=== PATIENT | female | born 1950 | race American Indian/Alaskan Native ===

== ENCOUNTER 2020-12-10 06:58 | Day surgery (SDC) | payer MEDICARE ==
[2020-12-10] MEDS ORDERED: ASPIRIN EC 325 MG TAB PO ONE (07:02)
[2020-12-10 07:41] LABS: Basophils % (Auto) 0.4 % (0.0-1.8); Eosinophils # (Auto) 0.2 K/mm3 (0.0-0.4); Hematocrit 40.9 % (30.3-42.9); Hemoglobin 13.9 gm/dl (10.1-14.3); Lymphocytes # (Auto) 1.9 K/mm3 (1.2-5.4); Lymphocytes % (Auto) 30.9 % (13.4-35.0); Mean Corpuscular HGB Conc 34 % (30-34); Mean Corpuscular Volume 96 fl (79-97); Monocytes # (Auto) 0.6 K/mm3 (0.0-0.8); Monocytes % (Auto) 9.4 % (0.0-7.3); Platelet Count 253 K/mm3 (140-440); Red Blood Count 4.26 M/mm3 (3.65-5.03); Red Cell Distribution Width 13.4 % (13.2-15.2)
[2020-12-10 07:54] LABS: BUN/Creatinine Ratio 12; Blood Urea Nitrogen 12 mg/dL (7-17); Calcium 9.5 mg/dL (8.4-10.2); Hemolysis Index 5
[2020-12-10 07:55] LABS: INR 0.91 (0.87-1.13)
[2020-12-10] MEDS ORDERED: fentaNYL 100 MCG/2 ML INJ ONE (08:05)
[2020-12-10] MEDS ORDERED: MIDAZOLAM 2 MG/2 ML INJ ONE (08:05)
[2020-12-10] MEDS ORDERED: NITROGLYCERIN SYRINGE 3 ML ONE (08:06)
[2020-12-10] MEDS ORDERED: HEPARIN 10,000 UNITS/10 ML VIAL ONE (08:06)
[2020-12-10] MEDS ORDERED: VERAPAMIL 5 MG/2 ML INJ ONE (08:06)
[2020-12-10] MEDS ORDERED: HEPARIN/NS 5000 UNIT/500ML 1,000 ML IR ONE (08:06)
[2020-12-10] MEDS: SODIUM CHLORIDE 0.9% 500 ML 500 ML IV SCH ×2 (08:30→09:05)
[2020-12-10] MEDS: LIDOCAINE (2%) 20 MG/1 ML VIAL 20 ML MDV INFILTRATI ONE ×2 (08:55→09:00)
--- NOTE | 2020-12-10 10:06 | Cardiac Catherization Report ---
DATE OF SERVICE: 12/10/2020 INDICATIONS: The patient is a 70-year-old female with history of recurrent substernal left sided sharp chest pains and symptoms are not related to any activities. Was noted to have abnormal myocardial perfusion imaging, which showed a small to medium-sized partially reversible apical defect suggestive of mild to moderate ischemia. Because of persistent chest pains,patient was scheduled for cardiac catheterization for definitive diagnosis and treatment. The patient is aware of the procedure, potential complications, and alternatives of therapy available. The patient is willing to proceed with cardiac catheterization. DESCRIPTION OF PROCEDURE: The patient was brought to the catheterization laboratory in a fasting condition. The right wrist area and forearm were thoroughly cleansed with Betadine solution. Sterile drapes were applied. Local anesthesia was achieved using 2% Xylocaine. The patient was evaluated for moderate sedation and was felt to be an appropriate candidate for moderate sedation. Received IV Versed and fentanyl. Subsequently, using a Glidewire could enter the ascending aorta with difficulty. Subclavian and innominate arteries were very tortuous. Right coronary angiograms were performed using a multipurpose catheter followed by 5-German TIG catheter for obtaining the left ventriculogram done in BRUNSON projection using hand injection and for obtaining the left coronary angiograms in multiple views. At the end of the procedure, catheter and sheath were removed and good hemostasis was achieved with application of radial band. The patient tolerated the procedure well. At the end of the procedure, the patient was comfortable, in no distress. The patient's sedation started at 8:52 a.m. and monitoring with EKG, pulse oximetry, and hemodynamic monitoring continued up to 9:12 a.m. No untoward complications were noted. The patient at the end of the procedure was breathing normally, communicating normally with no focal deficits and the patient was transferred to the room in stable condition. Following findings were noted: Aortic pressure was 172/79. Left ventricular pressure 172/13. No gradient across the aortic valve. Estimated ejection fraction 55%. LEFT ventriculogram done in BRUNSON projection showed normal sized left ventricle with normal contractility. End-diastolic and end-systolic volumes are normal. Mitral regurgitation could not be evaluated because of limited amount of dye injected. Right coronary artery dominant vessel arises normally from the anterior cusp. This vessel is angiographically smooth and normal. Left coronary artery arises normally from left coronary cusp. The left main is long, smooth and normal. LAD and its branches and circumflex artery and its branch are angiographically smooth and normal. FINAL IMPRESSION: 1. Normal-sized left ventricle with normal contractility with end-diastolic pressure upper limits of normal. 2. Angiographically normal coronary anatomy. 3. The patient tolerated the procedure well and tolerated the IV sedation well without any untoward side effects. Findings were explained to the patient and her daughter. PLAN: Continue present risk factor modification and medical therapy. TID: [id number] RECEIPT: [id number] ASHA/ANTONIO/ERIN MTDD
--- NOTE | 2020-12-10 10:53 | Short Stay Summary ---
Short Stay Documentation Date of service: 12/10/20 - History H&P: obtained from office - Allergies and Medications Current Medications: Allergies No Known Allergies Allergy (Verified 12/10/20 07:01) Home Medications Medication Instructions Recorded Confirmed Last Taken Type Aspirin [Adult Aspirin] 81 mg PO DAILY 12/10/20 12/10/20 12/09/20 History Desonide [Desonide 0.05%] 1 applicatio TP TID 12/10/20 12/10/20 12/09/20 History Elviteg/Cha/Emtric/Tenofo Ala 1 tab PO QAM 12/10/20 12/10/20 12/09/20 History [Genvoya (Nf)] Losartan [Cozaar] 50 mg PO QDAY 12/10/20 12/10/20 12/10/20 History Metoprolol Xl [Metoprolol 50 mg PO QDAY 12/10/20 12/10/20 12/10/20 History SUCCINATE ER TAB] Active Medications Sodium Chloride (Nacl 0.9% 500 Ml) 500 mls @ 50 mls/hr IV DIRECT NIALL Stop: 12/10/20 17:59 Last Admin: 12/10/20 09:05 Dose: 50 mls/hr Documented by: - Physical exam Integumentary: other (Right radial access site: Telfa Tegaderm in place, no bleeding or hematoma) - Brief post op/procedure progress note Date of procedure: 12/10/20 Pre-op diagnosis: Abnormal stress test Post-op diagnosis: other (Normal coronary arteries) Procedure: [facility] see dictated cath report Anesthesia: local Estimated blood loss: none Condition: stable - Disposition Condition at discharge: Good Disposition: DC-01 TO HOME OR SELFCARE Short Stay Discharge Plan Activity: advance as tolerated Diet: low fat, low cholesterol, low salt Wound: open to air, keep clean and dry, per your surgeon's advice Follow up with: ALBA HOOKS MD [Primary Care Provider] - 7 Days GUSTAVO MCKEON MD [Staff Physician] - 7 Days (Patient should follow-up with Dr. Kalpana Mckeon, [facility] in our [facility] office on 12/22/2020 at 10:15 AM. #[id number])
[2020-12-10 13:03] VITALS: BP 111/74
--- NOTE | 2020-12-11 17:54 | Electrocardiograph Report ---
[facility] Test Date: 2020-12-10 Test Time: 08:19:13 Pat Name: LOLI SUTTON Department: Room: Gender: F Painter Helper: ANNAMARIE : 1950 Requested By: FABIOLA WING Order Number: [id number] Reading MD: Michaela Paniagua Measurements Intervals [place] Rate: 71 P: 63 PA: 154 QRS: -28 QRSD: 94 T: 37 QT: 431 QTc: 470 Interpretive Statements Sinus rhythm Left axis deviation No previous ECG available for comparison Electronically Signed On 12-11-2020 17:53:33 EDT by Michaela Paniagua
== END 2020-12-10 13:00 | disposition home or self-care (01) ==
LOC: CATHLABREC 06:58
PROVIDERS: ATTEND Internal Medicine
DX: R07.89 Other chest pain (principal); E78.00 Pure hypercholesterolemia, unspecified; I10 Essential (primary) hypertension; Z79.899 Other long term (current) drug therapy; Z79.82 Long term (current) use of aspirin; Z98.49 Cataract extraction status, unspecified eye; Z98.890 Other specified postprocedural states
CPT/HCPCS: 80048; 85025; 85610; 93005; 93458; 99156; C1769; C1887; C1894; J1644; J2250; J3010; J7040; Q9967

== ENCOUNTER 2020-12-12 18:17 | Emergency (ER) | payer MEDICARE ==
[2020-12-12 18:24] VITALS: BP 179/96
[2020-12-12] MEDS ORDERED: HYDROcodone/ACETAMINOPHEN 5-325 MG TAB PO ONE (19:07)
--- NOTE | 2020-12-12 19:12 | Emergency Department Report ---
ED General Adult HPI - General Chief complaint: Extremity Injury, Upper Stated complaint: LT ARM PAINS Source: patient Mode of arrival: Ambulatory Limitations: No Limitations - History of Present Illness Initial comments: Patient 70-year-old -German female with history of hypertension, HIV positive, coronary artery disease, status post cardiac cath 2 days ago. Patient presents today for left arm pain that radiates from left neck to fingertips wtih tingling. Pain described as 5/10 sharp aching intermittent for past day. Pain is exacerbated by movement and deep inspiration. Pain is relieved by nothing. Patient denies shortness of breath, dizziness, headache, nausea or vomiting. There is been no diaphoresis. Patient denies activity intolerance. There is no weakness patient denies fall injury or trauma. There is no pain swelling bleeding or symptoms infection to cath site right wrist. - Related Data Home Medications Medication Instructions Recorded Confirmed Last Taken Aspirin [Adult Aspirin] 81 mg PO DAILY 12/10/20 12/10/20 12/09/20 Desonide [Desonide 0.05%] 1 applicatio TP TID 12/10/20 12/10/20 12/09/20 Elviteg/Cha/Emtric/Tenofo Ala 1 tab PO QAM 12/10/20 12/10/20 12/09/20 [Genvoya (Nf)] Losartan [Cozaar] 50 mg PO QDAY 12/10/20 12/10/20 12/10/20 Metoprolol Xl [Metoprolol 50 mg PO QDAY 12/10/20 12/10/20 12/10/20 SUCCINATE ER TAB] Previous Rx's Medication Instructions Recorded Last Taken Type Acetaminophen/Codeine [Tylenol 1 tab PO Q6H PRN #12 tab 12/12/20 Unknown Rx /Codeine # 3 tab] Allergies Allergy/AdvReac Type Severity Reaction Status Date / Time No Known Allergies Allergy Verified 12/12/20 18:19 ED Review of Systems ROS: Stated complaint: LT ARM PAINS Other details as noted in HPI Constitutional: denies: chills, fever Eyes: denies: eye pain, eye discharge, vision change ENT: denies: ear pain, throat pain Respiratory: denies: cough, shortness of breath, wheezing Cardiovascular: chest pain (left lateral chest wall pain ). denies: palpitations Endocrine: no symptoms reported Gastrointestinal: denies: abdominal pain, nausea, vomiting, diarrhea Genitourinary: denies: urgency, dysuria, discharge Musculoskeletal: myalgia, other (left arm pain and tingling ). denies: back pain, joint swelling, arthralgia Skin: denies: rash, lesions Neurological: denies: headache, weakness, paresthesias Psychiatric: denies: anxiety, depression Hematological/Lymphatic: denies: easy bleeding, easy bruising ED Past Medical Hx - Past Medical History Hx Hypertension: Yes Hx HIV: Yes Additional medical history: CARDIAC CATH- 12/10/20 - Social History Smoking Status: Never Smoker Substance Use Type: None - Medications Home Medications: Home Medications Medication Instructions Recorded Confirmed Last Taken Type Aspirin [Adult Aspirin] 81 mg PO DAILY 12/10/20 12/10/20 12/09/20 History Desonide [Desonide 0.05%] 1 applicatio TP TID 12/10/20 12/10/20 12/09/20 History Elviteg/Cha/Emtric/Tenofo Ala 1 tab PO QAM 12/10/20 12/10/20 12/09/20 History [Genvoya (Nf)] Losartan [Cozaar] 50 mg PO QDAY 12/10/20 12/10/20 12/10/20 History Metoprolol Xl [Metoprolol 50 mg PO QDAY 12/10/20 12/10/20 12/10/20 History SUCCINATE ER TAB] Acetaminophen/Codeine [Tylenol 1 tab PO Q6H PRN #12 tab 12/12/20 Unknown Rx /Codeine # 3 tab] ED Physical Exam - General Limitations: No Limitations General appearance: alert, in no apparent distress - Head Head exam: Present: atraumatic, normocephalic - Eye Eye exam: Present: normal appearance, EOMI Pupils: Present: normal accommodation - ENT ENT exam: Present: mucous membranes moist - Neck Neck exam: Present: normal inspection, full ROM. Absent: tenderness - Respiratory Respiratory exam: Present: normal lung sounds bilaterally, chest wall tenderness (left lateral chest wall pain). Absent: respiratory distress, wheezes, stridor - Cardiovascular Cardiovascular Exam: Present: regular rate, normal rhythm, normal heart sounds - GI/Abdominal GI/Abdominal exam: Present: soft, normal bowel sounds. Absent: distended, tenderness, guarding, rebound, rigid, bruit, hernia - Rectal Rectal exam: Present: deferred - Extremities Exam Extremities exam: Present: full ROM, tenderness (left axillary upper medial muscle tenderness to palpation, out of town collection clerk equal, acid adjuster < 3 sec, distal pulse +2 ), no rmal capillary refill - Expanded Upper Extremity Exam Left Shoulder Exam: Present: full ROM. Absent: tenderness, swelling Upper Arm exam: Present: full ROM, tenderness. Absent: swelling, crepidus, erythema Elbow exam: Present: full ROM. Absent: tenderness Forearm Wrist exam: Present: full ROM. Absent: tenderness, swelling Hand Wrist exam: Present: full ROM. Absent: tenderness Neuro motor exam: Present: wrist extension intact, thumb opposition intact, thumb IP flexion intact, thumb adduction intact, fingers 2-5 abduction intact Neurosensory exam: Present: radial nerve intact Vascular: Present: normal capillary refill, radial pulse - Back Exam Back exam: Present: normal inspection, full ROM. Absent: tenderness, muscle spasm, paraspinal tenderness, vertebral tenderness - Neurological Exam Neurological exam: Present: alert, oriented X3, CN II-XII intact, normal gait, reflexes normal. Absent: motor sensory deficit - Expanded Neurological Exam Expanded Patient oriented to: Present: person, place, time Speech: Present: fluid speech Cranial nerves: EOM's Intact: Normal, Gag Reflex: Normal, Tongue Deviation: Normal, Nystagmus: Normal, Facial Sensation: Normal Cerebellar function: Finger to Nose: Normal Upper motor neuron: Martin Neglect: Normal, Pronator Drift: Normal Sensory exam: Upper Extremity Light Touch: Normal, Upper Extremity Pin Prick: Normal, UE 2 Point Discrimination: Normal Motor strength exam: RUE: 5, LUE: 5, RLE: 5, LLE: 5 DTR: bicep (R): 2+, bicep (L): 2+, tricep (R): 2+, tricep (L): 2+ Best Eye Response ([place]): (4) open spontaneously Best Motor Response (Antonio): (6) obeys commands Best Verbal Response (Antonio): (5) oriented Antonio Total: 15 - Psychiatric Psychiatric exam: Present: normal affect, normal mood - Skin Skin exam: Present: warm, dry, intact, normal color. Absent: rash ED Course Vital Signs 12/12/20 12/12/20 18:22 19:50 Temperature 98.3 F Pulse Rate 70 Respiratory 20 16 Rate Blood Pressure 179/96 O2 Sat by Pulse 100 Oximetry ED Medical Decision Making - Lab Data Result diagrams: 12/12/20 19:11 12/12/20 19:11 Labs 12/12/20 12/12/20 12/12/20 19:11 19:11 19:11 WBC 7.3 RBC 4.16 Hgb 13.6 Hct 40.2 MCV 97 MCH 33 H MCHC 34 RDW 13.1 L Plt Count 246 Lymph % (Auto) 35.5 H [place] % (Auto) 9.3 H Eos % (Auto) 3.0 Baso % (Auto) 0.7 Lymph # (Auto) 2.6 [place] # (Auto) 0.7 Eos # (Auto) 0.2 Baso # (Auto) 0.0 Seg Neutrophils % 51.5 Seg Neutrophils # 3.8 PT 12.5 INR 0.88 APTT 26.9 Sodium 140 Potassium 4.6 Chloride 100.7 Carbon Dioxide 28 Anion Gap 16 BUN 13 Creatinine 0.9 Estimated GFR > 60 BUN/Creatinine Ratio 14 Glucose 101 H Calcium 9.7 Total Bilirubin 0.20 AST 18 ALT 10 Alkaline Phosphatase 132 H Troponin T < 0.010 Total Protein 7.0 Albumin 4.5 Albumin/Globulin Ratio 1.8 12/12/20 21:29 WBC RBC Hgb Hct MCV MCH MCHC RDW Plt Count Lymph % (Auto) [place] % (Auto) Eos % (Auto) Baso % (Auto) Lymph # (Auto) [place] # (Auto) Eos # (Auto) Baso # (Auto) Seg Neutrophils % Seg Neutrophils # PT INR APTT Sodium Potassium Chloride Carbon Dioxide Anion Gap BUN Creatinine Estimated GFR BUN/Creatinine Ratio Glucose Calcium Total Bilirubin AST ALT Alkaline Phosphatase Troponin T < 0.010 Total Protein Albumin Albumin/Globulin Ratio - EKG Data EKG shows normal: sinus rhythm, intervals Rate: normal - EKG Data When compared to previous EKG there are: no significant change Interpretation: nonspecific ST-T wave niecy (SR Left [place] deviation, No STEMI interp by ed attending) - Radiology Data Radiology results: report reviewed, image reviewed INDICATION / CLINICAL INFORMATION: chest wall pain. COMPARISON: None available. FINDINGS: SUPPORT DEVICES: None. HEART / MEDIASTINUM: No significant abnormality. LUNGS / PLEURA: No significant pulmonary or pleural abnormality. No pneumothorax. ADDITIONAL FINDINGS: No significant additional findings. IMPRESSION: 1. No acute findings. Signer Name: Werner Hand MD Signed: 12/12/2020 7:26 PM Workstation Name: [email or web address] Transcribed By: CORI Dictated By: Werner Hand MD Electronically Authenticated By: Werner Hand MD Signed Date/Time: 12/12/201925 DD/ 25 TD/TT: - Medical Decision Making Heart Score 3, CXR: Normal no infiltates no opacities, EKG: SR no STEMI, interp by ed attending, labs normal , Trop > 0.01 x 2 Pain is improved s/p rx given in ed. Plan pain meds, moist heat therapy, shoulder exercises follow up with pcp in 2-3 days. Critical care attestation.: If time is entered above; I have spent that time in minutes in the direct care of this critically ill patient, excluding procedure time. ED Disposition Clinical Impression: Musculoskeletal pain Left shoulder strain Qualifiers: Encounter type: initial encounter Qualified Code(s): S46.912A - Strain of unspecified muscle, fascia and tendon at shoulder and upper arm level, left arm, initial encounter Disposition: TO HOME OR SELFCARE Is pt being admited?: No Does the pt Need Aspirin: No Condition: Stable Instructions: Muscle Strain, [id number], Musculoskeletal Pain Additional Instructions: Take medications as prescribed, moist heat therapy as directed, follow-up with your doctor in 2 to 3 days. Return to emergency department should symptoms worsen. Prescriptions: Acetaminophen/Codeine [Tylenol /Codeine # 3 tab] 1 tab PO Q6H PRN #12 tab PRN Reason: pain Referrals: ALBA HOOKS MD [Primary Care Provider] - 3-5 Days Time of Disposition: 22:26
--- NOTE | 2020-12-12 19:30 | XRay Report ---
CHEST 2 VIEWS INDICATION / CLINICAL INFORMATION: chest wall pain. COMPARISON: None available. FINDINGS: SUPPORT DEVICES: None. HEART / MEDIASTINUM: No significant abnormality. LUNGS / PLEURA: No significant pulmonary or pleural abnormality. No pneumothorax. ADDITIONAL FINDINGS: No significant additional findings. IMPRESSION: 1. No acute findings. Signer Name: Werner Hand MD Signed: 12/12/2020 7:26 PM Workstation Name: [id number]
[2020-12-12 19:32] LABS: Basophils % (Auto) 0.7 % (0.0-1.8); Eosinophils # (Auto) 0.2 K/mm3 (0.0-0.4); Hematocrit 40.2 % (30.3-42.9); Hemoglobin 13.6 gm/dl (10.1-14.3); Lymphocytes # (Auto) 2.6 K/mm3 (1.2-5.4); Lymphocytes % (Auto) 35.5 % (13.4-35.0); Mean Corpuscular HGB Conc 34 % (30-34); Mean Corpuscular Volume 97 fl (79-97); Monocytes # (Auto) 0.7 K/mm3 (0.0-0.8); Monocytes % (Auto) 9.3 % (0.0-7.3); Platelet Count 246 K/mm3 (140-440); Red Blood Count 4.16 M/mm3 (3.65-5.03); Red Cell Distribution Width 13.1 % (13.2-15.2)
[2020-12-12 19:44] LABS: INR 0.88 (0.87-1.13)
[2020-12-12 19:45] LABS: Partial Thromboplastin Time 26.9 Sec. (24.2-36.6)
[2020-12-12 19:49] LABS: Alanine Aminotransferase 10 units/L (7-56); Albumin 4.5 g/dL (3.9-5); BUN/Creatinine Ratio 14; Blood Urea Nitrogen 13 mg/dL (7-17); Calcium 9.7 mg/dL (8.4-10.2); Hemolysis Index 28
--- NOTE | 2020-12-16 17:31 | Electrocardiograph Report ---
[facility] Test Date: 2020-12-12 Test Time: 18:28:16 Pat Name: LOLI SUTTON Department: Room: Gender: F Investment Broker: VICTORINA : 1950 Requested By: NIKITA NELSON Order Number: [id number] Reading MD: Michaela Paniagua Measurements Intervals [place] Rate: 65 P: 60 DC: 158 QRS: -38 QRSD: 99 T: 37 QT: 427 QTc: 446 Interpretive Statements Sinus rhythm Left axis deviation Compared to ECG 12/10/2020 08:19:13 No significant change Electronically Signed On 12-16-2020 17:31:24 EDT by Michaela Paniagua
== END 2020-12-12 22:46 | disposition home or self-care (01) ==
LOC: ED 18:17
DX: S46.912A Strain of unspecified muscle, fascia and tendon at shoulder and upper arm level, left arm, initial encounter (principal); I10 Essential (primary) hypertension; Z79.899 Other long term (current) drug therapy; Z21 Asymptomatic human immunodeficiency virus [HIV] infection status; X58.XXXA Exposure to other specified factors, initial encounter; Y93.89 Activity, other specified; Y92.89 Other specified places as the place of occurrence of the external cause; Y99.8 Other external cause status
CPT/HCPCS: 36415; 71046; 80053; 84484; 85025; 85610; 85730; 93005